=== PATIENT | male | born 1945 | race Caucasian/White ===

== ENCOUNTER 2017-07-25 11:42 | Emergency (ER) | payer OTHER ==
[2017-07-25] MEDS: morphine 4 MG/ML VIAL IV (12:12)
[2017-07-25] MEDS: SOD CHLORIDE 0.9% 1,000 ML IV (12:12)
[2017-07-25] MEDS: ONDANSETRON 4 MG INJ IV (12:12)
[2017-07-25 12:16] LABS: ADD MAN DIFF? NO
[2017-07-25 12:19] LABS: BASOPHILS % 0.3 % (0.0-2.0); EOSINOPHILS % 0.3 % (0.0-7.0); HEMATOCRIT 48.5 % (42.0-52.0); HEMOGLOBIN 15.2 g/dl (14.0-18.0); LYMPHOCYTES # 1.6 10^3/ul (0.8-2.9); LYMPHOCYTES % 16.1 % (15.0-51.0); MEAN CORPUSCULAR HEMOGLOBIN 26.4 pg (29.0-33.0); MEAN CORPUSCULAR HGB CONC 31.3 g/dl (32.0-37.0); MEAN CORPUSCULAR VOLUME 84.2 fl (82.0-101.0); MEAN PLATELET VOLUME 8.8 fl (7.4-10.4); MONOCYTE # 0.7 10^3/ul (0.3-0.9); MONOCYTES % 6.8 % (0.0-11.0); NEUTROPHIL # 7.6 10^3/ul (1.6-7.5); NEUTROPHILS % 76.1 % (39.0-77.0); PLATELET COUNT 334 10^3/UL (140-415); RED BLOOD COUNT 5.76 10^6/ul (4.70-6.10); RED CELL DISTRIBUTION WIDTH 13.4 % (11.5-14.5)
[2017-07-25] MEDS: DILTIAZEM 25 MG INJ IV (12:31)
[2017-07-25 12:38] LABS: ALANINE AMINOTRANSFERASE 24 IU/L (13-69); ALBUMIN 4.4 g/dl (3.3-4.9); ALBUMIN/GLOBULIN RATIO 1.25; ALKALINE PHOSPHATASE 163 IU/L (42-121); ANION GAP 20 (8-16); ASPARTATE AMINO TRANSFERASE 26 IU/L (15-46); BILIRUBIN,INDIRECT 0.5 mg/dl (0-1.1); BILIRUBIN,TOTAL 0.5 mg/dl (0.2-1.3); BLOOD UREA NITROGEN 17 mg/dl (7-20); CALCIUM 9.3 mg/dl (8.4-10.2); CARBON DIOXIDE 25 mmol/L (21-31); CHLORIDE 104 mmol/L (97-110); CREATINE KINASE 59 IU/L (23-200); CREATININE 1.18 mg/dl (0.61-1.24); GLUCOSE 116 mg/dl (70-220); POTASSIUM 3.5 mmol/L (3.5-5.1); SODIUM 145 mmol/L (135-144); TOTAL PROTEIN 7.9 g/dl (6.1-8.1)
[2017-07-25 12:45] LABS: INR 1.08; PROTIME 14.1 Sec (11.9-14.9); PT RATIO 1.1
[2017-07-25 12:46] LABS: PARTIAL THROMBOPLASTIN TIME 32.6 Sec (25.0-35.0)
[2017-07-25 12:50] LABS: B-TYPE NATRIURETIC PEPTIDE 5890 PG/ML (0-125); CK INDEX 2.6; TROPONIN-I 0.029 ng/ml (0.00-0.12)
[2017-07-25 12:58] LABS: CK-MB 1.56 ng/ml (0.0-2.4)
[2017-07-25] MEDS: DILTIAZEM-D5W 125MG/125ML DRIP 125 ML IV (13:44)
[2017-07-25] MEDS: ASPIRIN 325 MG TAB PO (13:44)
[2017-07-25 13:47] LABS: ADD UMIC NO; UR ASCORBIC ACID NEGATIVE (NEGATIVE); UR BILIRUBIN (Dip) NEGATIVE (NEGATIVE); UR BLOOD (Dip) NEGATIVE (NEGATIVE); UR CLARITY CLEAR (CLEAR); UR COLOR COLORLESS (YELLOW); UR GLUCOSE (Dip) NEGATIVE (NEGATIVE); UR KETONES (Dip) NEGATIVE (NEGATIVE); UR LEUKOCYTE ESTERASE (Dip) NEGATIVE Leu/ul (NEGATIVE); UR NITRITE (Dip) NEGATIVE (NEGATIVE); UR SPECIFIC GRAVITY (Dip) 1.002 (1.003-1.030); UR TOTAL PROTEIN (Dip) NEGATIVE (NEGATIVE); UR UROBILINOGEN (Dip) NEGATIVE (NEGATIVE)
[2017-07-25] MEDS: SOD CHLORIDE 0.9% 100 ML (13:48)
[2017-07-25] MEDS: IOHEXOL 300MG/ML 150 ML BTL (13:49)
[2017-07-25 13:59] LABS: ETHANOL < 10.0 mg/dl
[2017-07-25 14:06] LABS: DIGOXIN 0.4 ng/ml (1.0-2.0)
[2017-07-25 14:19] LABS: OPIATES Positive (NEGATIVE)
[2017-07-25 14:22] LABS: AMPHETAMINE/METHAMPHETAMINE Negative (NEGATIVE); BARBITURATES Negative (NEGATIVE); BENZODIAZEPINES Negative (NEGATIVE); CANNABINOIDS Negative (NEGATIVE); COCAINE Negative (NEGATIVE)
== END 2017-07-25 16:44 | disposition left against medical advice (07) ==
LOC: E/R 11:42
DX: I48.91 Unspecified atrial fibrillation (principal); M79.605 Pain in left leg; M79.604 Pain in right leg; R06.02 Shortness of breath; Z95.0 Presence of cardiac pacemaker; Z98.61 Coronary angioplasty status
CPT/HCPCS: 71045; 75635; 80053; 80162; 80306; 80307; 81003; 82550; 82553; 83880; 84484; 85025; 85610; 85730; 93005; 93970; 96374; 96375; 99291-25